=== PATIENT | male | born 1970 | race Caucasian/White ===

== ENCOUNTER → 2021-11-23 09:28 | Outpatient (BNVA) | payer OTHER, SELFPAY | PROVIDERS: Family Provider Nurse Practitioner Family; PCP Nurse Practitioner Family; Visit Provider Nurse Practitioner Family | DX: M10.9 Gout, unspecified (principal); R73.9 Hyperglycemia, unspecified; I10 Essential (primary) hypertension; N40.0 Benign prostatic hyperplasia without lower urinary tract symptoms | CPT/HCPCS: 80053; 81000; 83036; 84153; 84550; 85025 ==

== ENCOUNTER → 2022-06-07 10:44 | Outpatient (BNVA) | payer OTHER, SELFPAY | PROVIDERS: Family Provider Nurse Practitioner Family; PCP Nurse Practitioner Family; Visit Provider Nurse Practitioner Family | DX: I10 Essential (primary) hypertension (principal); M10.9 Gout, unspecified; M72.2 Plantar fascial fibromatosis | CPT/HCPCS: 80053; 84550; 85025 ==

== ENCOUNTER → 2022-09-26 18:08 | Outpatient (BNVA) | payer OTHER, SELFPAY | PROVIDERS: Family Provider Nurse Practitioner Family; PCP Nurse Practitioner Family; Visit Provider Emergency Medicine | DX: M79.642 Pain in left hand (principal) | CPT/HCPCS: 73130 ==

== ENCOUNTER 2022-10-13 06:41 | Outpatient (CLI) | payer OTHER, SELFPAY ==
--- NOTE | 2022-10-13 07:15 | US_ITS ---
WS: [id number] ULTRASOUND SOFT TISSUES LEFT fourth finger. HISTORY: pain COMPARISON: Radiograph 09/26/2022 TECHNIQUE: 2-D and color Doppler imaging is submitted. Unremarkable appearance of the soft tissues involving the LEFT fourth finger. No soft tissue foreign bodies are identified. There is a very tiny hypoechoic nodule measuring 6 x 2 mm. The exact location is not documented other than fourth finger. This may be a palpable abnormality as it is very superfic ial. Very benign in appearance. Small sebaceous cyst or epidermoid. May be from post injury. US/US soft tissue/extremity 10649 IMPRESSION: 1. 6 x 2 mm very nonspecific hypoechoic nodule in the soft tissues of the four th finger. The exact location was not documented adequately by the operating room aide. By history this may be palpable. May be a small sebaceous cyst. Posttraumatic healing soft tissue injury also within the differential. There is no shadowing. 2. No foreign body identified.
== END 2022-10-13 06:42 | disposition home or self-care (01) ==
PROVIDERS: PCP Nurse Practitioner Family; Visit Provider Student in an Organized Health Care Education/Training Program
DX: M79.645 Pain in left finger(s) (principal); R22.32 Localized swelling, mass and lump, left upper limb
CPT/HCPCS: 76882

== ENCOUNTER → 2022-11-29 09:31 | Outpatient (BNVA) | payer OTHER, SELFPAY | PROVIDERS: PCP Nurse Practitioner Family; Visit Provider Nurse Practitioner Family | DX: I10 Essential (primary) hypertension (principal); M10.9 Gout, unspecified; N40.0 Benign prostatic hyperplasia without lower urinary tract symptoms; R73.9 Hyperglycemia, unspecified; Z12.5 Encounter for screening for malignant neoplasm of prostate; L25.9 Unspecified contact dermatitis, unspecified cause; L40.9 Psoriasis, unspecified | CPT/HCPCS: 80053; 80061; 84550; 85025; G0103 ==

== ENCOUNTER → 2023-03-11 17:51 | Outpatient (BNVA) | payer OTHER, SELFPAY | PROVIDERS: PCP Nurse Practitioner Family; Visit Provider Family Medicine | DX: R50.9 Fever, unspecified (principal); J45.901 Unspecified asthma with (acute) exacerbation | CPT/HCPCS: 71046; 87400; 87426 ==

== ENCOUNTER → 2023-03-13 10:46 | Outpatient (BNVA) | payer OTHER, SELFPAY | PROVIDERS: PCP Nurse Practitioner Family; Visit Provider Nurse Practitioner Family | DX: R50.9 Fever, unspecified (principal); Z86.19 Personal history of other infectious and parasitic diseases | CPT/HCPCS: 86003; 86008; 86618; 86666; 86757 ==

== ENCOUNTER 2023-06-29 06:40 | Day surgery (SDC) | payer OTHER, SELFPAY ==
[2023-06-29 06:56] VITALS: BP 162/114; PULSE 67; RESP 18; TEMP 36.6; O2SAT 95; BMI 43.1
--- NOTE | 2023-06-29 07:05 | ANES.PREANE2 ---
Pre-Anesthetic Assessment Height/Weight: Height 1.88 m Weight 152.407 kg Temp Pulse Resp BP Pulse Ox O2 Del Method 97.9 F 67 18 162/114 95 Room Air 06/29/23 06:56 06/29/23 06:56 06/29/23 06:56 06/29/23 06:56 06/29/23 06:56 06/29/23 06:56 Operation Date: 06/29/23 07:40 Proposed Procedures p 49711 colon G0105 screen colon H risk Z12.11(Not Applicable) - Dougie Gallagher MD Familial anesthetic complications: Said anesthesiologist told him that he quit breathing on him with a prior colonoscopy. Patient wasn't admitted to hospital afterwards and suffered no sore throat or bleeding to his airway Was Beta Tj taken within 24 hours: N/A Was Clonidine taken within 24 hours: N/A Last intake: Intake Last Liquid Date 06/28/23 Last Liquid Time 23:45 Last Solid Date 06/27/23 Last Solid Time 22:30 Social Tobacco and No alcohol Airway Mallampati: Class I Dentition: other (missing) Pulmonary Sleep Apnea CV/HEM Hypertension Metabolic Morbid Obesity Anesthetic Plan ASA status: 3 Anesthesia: MAC Risk of > 500 ml blood loss (7ml/kg in children): No Medications/Allergies Home Medications Medication Instructions Recorded Confirmed Last Taken Type ipratropium 0.5 mg-albuterol 3 mg 3 ml inhalation QID PRN Shortness 12/14/21 06/29/23 Unknown History (2.5 mg base)/3 mL nebulization Of Breath soln albuterol sulfate 90 mcg/actuation 1 inh inhalation QID #8.5 grams 12/26/21 06/29/23 06/26/23 Rx aerosol inhaler (ProAir HFA) budesonide-formoterol HFA 160 1 inh inhalation BID #10.2 grams 12/26/21 06/29/23 06/29/23 Rx mcg-4.5 mcg/actuation aerosol inhaler (Symbicort) famotidine 20 mg tablet 20 mg PO DAILY #90 tabs 07/10/22 06/29/23 06/29/23 Rx atorvastatin 20 mg tablet 20 mg PO DAILY #90 tabs 01/11/23 06/29/23 06/28/23 Rx lisinopril 40 mg tablet 40 mg PO DAILY #90 tabs 01/11/23 06/29/23 06/28/23 Rx metoprolol tartrate 100 mg tablet 100 mg PO BID #180 tabs 01/11/23 06/29/23 06/29/23 Rx montelukast 10 mg tablet 10 mg PO DAILY #90 tabs 01/11/23 06/29/23 06/28/23 Rx allopurinol 300 mg tablet 300 mg PO DAILY #90 tabs 01/19/23 06/29/23 06/29/23 Rx amlodipine 10 mg tablet 10 mg PO DAILY #90 tabs 01/19/23 06/29/23 06/28/23 Rx terazosin 1 mg capsule 1 mg PO DAILY #90 caps 01/19/23 06/29/23 06/28/23 Rx potassium chloride 10 mEq 10 meq PO DAILY #90 tabs 05/07/23 06/29/23 06/28/23 Rx tablet,extended release hydrochlorothiazide 25 mg tablet 25 mg PO DAILY #90 tabs 05/29/23 06/29/23 06/29/23 Rx diclofenac sodium 1 % topical gel 2 g topical BID PRN Pain 06/27/23 06/29/23 Unknown History (Voltaren Arthritis Pain) prednisone 20 mg tablet 20 mg PO DAILY #20 tabs 06/27/23 06/29/23 06/28/23 Rx Allergies Allergy/AdvReac Type Severity Reaction Status Date / Time No Known Allergies Allergy Verified 06/29/23 06:53 PFSH Anesthesia Family History (Updated 06/22/23 @ 12:20 by EDI Arce) Brother Colon cancer Social History (Updated 06/22/23 @ 12:20 by EDI Arce) Smoking and tobacco/nicotine status: current every day tobacco/nicotine user smokeless tobacco Smokeless tobacco user: chewing tobacco Alcohol intake: never Data Anesthesia Cardiac Studies: No Data to Display
[2023-06-29] MEDS: sodium chloride 0.9% 1,000 ML 30 ML IV (07:10)
--- NOTE | 2023-06-29 07:22 | W.PM.OPSFHP ---
Same Day Surgery H&P Indication for Procedure/HPI DATE OF PROCEDURE: June 29, 2023 CHIEF COMPLAINT/INDICATIONFOR SURGICAL PROCEDURE: need for screening colonoscopy PREOP DIAGNOSIS: need for screening colonoscopy PLANNED PROCEDURE: Operation Date: 06/29/23 07:40 Proposed Procedures p 82972 colon G0105 screen colon H risk Z12.11(Not Applicable) - Dougie Gallagher MD Medications/Allergies* Home Medications Medication Instructions Recorded Confirmed Type ipratropium 0.5 mg-albuterol 3 mg 3 ml inhalation QID PRN Shortness 12/14/21 06/29/23 History (2.5 mg base)/3 mL nebulization Of Breath soln diclofenac sodium 1 % topical gel 2 g topical BID PRN Pain 06/27/23 06/29/23 History (Voltaren Arthritis Pain) Allergies/Adverse Reactions Allergy/AdvReac Type Severity Reaction Status Date / Time No Known Allergies Allergy Verified 06/29/23 06:53 Current Medications: Generic Name Dose Route Start Last Admin Trade Name Freq PRN Reason Stop Dose Admin Sodium Chloride 1,000 mls @ 30 mls/hr 06/29/23 07:00 06/29/23 07:10 Sodium Chloride 0.9% IV 06/30/23 06:59 30 mls/hr .Q24H ANGELINE Administration Pertinent History/Comorbid Conditions* Family History (Updated 06/22/23 @ 12:20 by EDI Arce) Colon cancer Brother Social History Smoking and tobacco/nicotine status: current every day tobacco/nicotine user smokeless tobacco Smokeless tobacco user: chewing tobacco Alcohol intake: never Pertinent Exam Findings alert, oriented x 3 and clear to auscultation bilaterally Recommendations Surgery/Procedure today Coding Level of Care Code Acute Code for Chg Fwd
[2023-06-29 08:57] VITALS: BP 108/74; PULSE 75; RESP 14; TEMP 36.4; O2SAT 98
[2023-06-29 09:08] VITALS: BP 116/78; PULSE 77; RESP 14; O2SAT 97
[2023-06-29 09:23] VITALS: BP 120/80; PULSE 71; RESP 16; O2SAT 94
== END 2023-06-29 09:50 | disposition home or self-care (01) ==
PROVIDERS: PCP Nurse Practitioner Family; Visit Provider Surgery
PROC: 0DJD8ZZ Inspection of Lower Intestinal Tract, Via Natural or Artificial Opening Endoscopic (ICD-10-PCS; CPT 45378; principal; 2023-06-29 07:40)
DX: Z12.11 Encounter for screening for malignant neoplasm of colon (principal); D12.3 Benign neoplasm of transverse colon; F17.220 Nicotine dependence, chewing tobacco, uncomplicated; G47.30 Sleep apnea, unspecified; I10 Essential (primary) hypertension
CPT/HCPCS: 45385; J2704; J3490; J7030

== ENCOUNTER 2023-06-29 13:34 | Outpatient (CLI) | payer OTHER, SELFPAY | END 2023-06-29 13:35 | disposition home or self-care (01) | PROVIDERS: PCP Nurse Practitioner Family; Visit Provider Nurse Practitioner Family | DX: K51.40 Inflammatory polyps of colon without complications (principal) | CPT/HCPCS: 88305 ==